=== PATIENT | female | born 1975 | race Caucasian/White ===

== ENCOUNTER → 2019-07-13 10:41 | Outpatient (CLI) | payer BC, SELFPAY ==
--- NOTE | 2019-07-13 10:47 | US_ITS ---
STUDY: ABDOMINAL ULTRASOUND - RIGHT UPPER QUADRANT REASON FOR VISIT: Female, 44 years old. R quadrant pain TECHNIQUE: Ultrasound evaluation of the right upper quadrant was performed with real-time and static smith-scale imaging. TECHNICAL QUALITY: Adequate. COMPARISON: None. FINDINGS: Liver: The liver measures 14 cm. There is increased echogenicity of the liver. The bile ducts are within normal limits. There is hepatic color flow. The direction of portal flow is hepatopetal. There is no demonstrated mass lesion. Gallbladder: Normal distended gallbladder. The gallbladder wall measures 3 mm. There is no pericholecystic fluid. There are no gallstones. Gallbladder sludge is present. Common Bile Duct (C.B.D.): The common bile duct measures 2 mm. Pancreas: Normal size of the head, body and tail of the pancreas. There is normal echogenicity of the pancreas. There is no demonstrated pancreatic mass or cyst. Right Kidney: Normal size of the right kidney. The right kidney measures 10 cm. Normal renal cortex. There is no demonstrated renal mass or cyst. There is no right hydronephrosis. US/Gallbladder IMPRESSION: Fatty liver. No hepatic lesions identified. Gallbladder sludge. Electronically Signed: Edwin Sterling, at 18:09 EDT Tel , Service support ,
== END ==
PROVIDERS: Family Provider Family Medicine; PCP Family Medicine; Referring Provider Family Medicine; Visit Provider Family Medicine
DX: R10.11 Right upper quadrant pain (principal)
CPT/HCPCS: 76705

== ENCOUNTER → 2019-08-05 10:08 | Outpatient (CLI) | payer BC, SELFPAY ==
[2019-08-05 09:18] VITALS: BMI 34.7
[2019-08-05 10:30] LABS: Absolute Lymphocyte Count 2.24 X10^3/uL (0.83-4.51); Absolute Neutrophil Count 3.9 X10^3/uL (2.0-7.7); Basophil# 0.05 X10^3/uL; Basophil% 0.7 % (0-1); Eosinophil# 0.24 X10^3/uL; Eosinophils% 3.3 % (0-5); Hematocrit 41.7 % (37-47); Hemoglobin 13.7 g/dL (12.0-15.0); Lymphocyte # 2.24 X10^3/ul (4.0); Lymphocyte % 30.7 % (19-41); Mean Corp Hgb Conc 32.9 g/dL (32-36); Mean Corpuscular Volume 91.4 fL (81-99); Mean Platelet Vol. 9.1 fl (6.2-12.0); Monocyte# 0.81 X10^3/uL; Monocyte% 11.1 % (0-10); NRBC Flagged by Analyzer 0 % (0-5); Neutrophil # 3.93 X10^3/uL (2.7-7.7); Neutrophil % 53.8 % (47-70); Platelet Count 281 K/mm3 (150-450); RBC Distribution Width CV 12.6 % (11.6-14.6); Red Blood Count 4.56 M/mm3 (4.2-5.4); White Blood Count 7.3 K/mm3 (4.4-11.0)
[2019-08-05 11:00] LABS: Erythrocyte Sedimentation Rate 3 mm/hr (0-20)
[2019-08-05 11:05] LABS: ALB/GLOB Ratio 1.1 RATIO (0.9-2.4); AST(SGOT) 20 U/L (15-37); Alanine Aminotransfer ALT/SGPT 42 U/L (13-56); Albumin, Serum 3.9 g/dL (3.2-5.0); Alkaline Phosphatase 57 U/L (45-117); Anion Gap 6 (5-15); BUN 11 mg/dL (7-18); BUN/Creat Ratio 11.2 RATIO (10-20); Calcium,Total 9.1 mg/dL (8.5-10.1); Chloride 105 mmol/L (98-107); Creatinine, Serum 0.98 mg/dL (0.55-1.02); EST Glomerular Filtration Rate 65 mL/min (>60); Est Glom Filt Rate - Afr Amer 79 mL/min (>60); Globulin 3.4 g/dL (2.2-4.2); Glucose 91 mg/dL (74-106); Lipase 178 U/L (73-393); Potassium 3.9 mmol/L (3.5-5.1); Protein, Total 7.3 g/dL (6.4-8.2); Sodium Level 139 mmol/L (136-145)
== END ==
PROVIDERS: Family Provider Family Medicine; PCP Family Medicine; Referring Provider Surgery; Visit Provider Surgery
DX: R10.9 Unspecified abdominal pain (principal)
CPT/HCPCS: 80053; 83690; 85025; 85652

== ENCOUNTER → 2019-08-09 12:01 | Outpatient (CLI) | payer BC, SELFPAY ==
[2019-08-05 09:18] VITALS: BMI 34.7
--- NOTE | 2019-08-09 12:02 | NM_ITS ---
CLINICAL: 44-year-old female with reported history of postprandial abdominal pain and nausea. RADIONUCLIDE HEPATOBILIARY SCINTIGRAPHY COMPARISON: Abdominal ultrasound report 07/13/2019 FINDINGS: Following the intravenous administration of 5.5 mCi of 99m Tc Mebrofenin, hepatobiliary images reveal: 1. Relatively prompt and homogeneous radiopharmaceutical concentration is noted by a normal sized liver. No parenchymal defects are identified. 2. Gallbladder activity is identified at 15 minutes post radiopharmaceutical administration. 3. Small intestinal tract is not visualized during 60 minutes of pre-CCK sequential imaging. Small bowel activity is identified following the administration of cholecystokinin. 4. Washout of the radiopharmaceutical by the hepatic parenchyma appears qualitatively normal. Cholecystokinin (0.02 ug/kg) was administered intravenously over a 30-minute period. The post CCK gallbladder ejection fraction calculated at 19 minutes following Cholecystokinin administration was noted to be 39.0 % (normal greater than 35%). During 30 minutes of post CCK imaging, there is no scintigraphic evidence of reflux of the radiotracer into the common hepatic duct or refilling of the gallbladder. MD/Hepatobilliary Img w/Pharm Int IMPRESSION: 1. NORMAL 99m Tc Mebrofenin hepatobiliary imaging examination with Cholecystokinin. A. A gallbladder ejection fraction calculated to be greater than 35% following the administration of Cholecystokinin makes the probability of functional hepatobiliary disease (gallbladder and/or sphincter of Oddi dyskinesia) and/or organic hepatobiliary disease (chronic acalculous cholecystitis and/or cystic duct syndrome) to be low. (Yuri Munoz et al, Journal of Nuclear Medicine 32:1695, 1990). Electronically Signed: Farhad Diehl DO at 23:59 EST Tel , Service support ,
== END ==
PROVIDERS: Family Provider Family Medicine; PCP Family Medicine; Referring Provider Surgery; Visit Provider Surgery
DX: R10.11 Right upper quadrant pain (principal)
CPT/HCPCS: 78227; A9537; J2805

== ENCOUNTER 2019-08-30 08:41 | Day surgery (SDC) | payer BC, SELFPAY ==
[2019-08-05 09:18] VITALS: BMI 34.7
--- NOTE | 2019-08-05 10:34 | HP_ITS ---
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 Is patient in pain?: No Allergies No Known Allergies Allergy (Verified 08/05/19 09:19) Medications atorvastatin 40 mg tablet 40 mg PO DAILY PRN 08/05/19 [History Confirmed 08/05/19] bupropion HCl XL 300 mg 24 hr tablet, extended release 300 mg PO QAM 08/05/19 [History Confirmed 08/05/19] esomeprazole magnesium 40 mg capsule,delayed release 40 mg PO DAILY 08/05/19 [History Confirmed 08/05/19] esterified estrogens-methyltestosterone 0.625 mg-1.25 mg tablet 1 tab PO DAILY 08/05/19 [History Confirmed 08/05/19] estradiol 0.5 mg/0.5 gram (0.1 %) transdermal gel packet 1 packet TRANSDERMAL DAILY 08/05/19 [History Confirmed 08/05/19] levothyroxine 112 mcg capsule 112 mcg PO DAILY 08/05/19 [History] metoprolol succinate ER 50 mg tablet,extended release 24 hr 50 mg PO DAILY 08/05/19 [History Confirmed 08/05/19] Is last menstrual period known: No Post menopausal: No Patient : No [facility] Medical History (Updated 08/05/19 @ 10:31 by Al Bolton MD) Abnormal gallbladder ultrasound (Acute) Right upper quadrant pain (Acute) Heartburn (Acute) Anxiety and depression (Acute) GERD (gastroesophageal reflux disease) (Acute) History of thyroid cancer (Acute) Hypothyroidism (Acute) HTN (hypertension) (Chronic) Surgical History (Updated 08/05/19 @ 09:15 by Soco Dooley) History of colonoscopy (Acute ~2008) History of esophagogastroduodenoscopy (EGD) (Acute ~2008) History of hernia repair (Acute ~2010) History of total hysterectomy (Acute) History of total thyroidectomy (Acute) history of lacrimal duct surgery (Acute) Family History (Updated 08/05/19 @ 09:17 by Soco Dooley) Mother Diabetes Heart disease Father Diabetes Heart disease Hypertension Grandfather CVA (cerebral vascular accident) Social History (Updated 08/05/19 @ 10:34 by Al Bolton MD) Smoking Status: Never smoker alcohol intake: current HPI HPI HPI: VIDAL MORIN, is a 44 F who presents to the office today for HPI HPI Surgical H&P: Yes HPI: VIDAL MORIN is a 44 F who presents to the office today for surgical consultation regarding heartburn and right upper quadrant pain and an abnormal gallbladder ultrasound. The patient is referred by Dr. Shabazz and a written copy of my surgical consult recommendations will return to him. Pleasant 44-year-old female. 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 Mid- summer she states that she had escalation of heartburn symptoms. She tried [id number] antacids like Tums and generic Prilosec. She found some relief but incomplete relief. Feet she found that she had to increase the dosages. April she had onset of vomiting and also onset of right upper quadrant pain with radiation to her back. She was seen by Dr. Shabazz who initiated her on Nexium. The patient states that she is still having reflux symptoms. She complains of a water brash-like sensation retrosternally. But in addition she is complaining of tenderness in the right upper quadrant. She complains of bloating and nausea loose stools. She complains of fatty food intolerance. She does not recall recently having any blood work obtained. She states that approximately 10 years ago she had both an upper and lower endoscopy. At the [facility] on July 13 the patient had a right upper quadrant gallbladder ultrasound. Normal distended gallbladder. Wall measures 3 mm. No pericholecystic fluid. No gallstones. Gallbladder sludge is present. Common bile duct measures 2 mm. [facility] Imaging Services [address] [address] Gallbladder MR#: [id number]:[id number] Name: VIDAL MORIN [facility] #:[id number] : 1975 44 From: Edwin Sterling MD PCP:Jase Shabazz MD Status:REG CLI Study:Gallbladder Date of Exam:07/13/19 Exam#[id number] Ordering Dr: Jase Shabazz MD STUDY: ABDOMINAL ULTRASOUND - RIGHT UPPER QUADRANT REASON FOR VISIT: Female, 44 years old. R quadrant pain TECHNIQUE: Ultrasound evaluation of the right upper quadrant was performed with real-time and static smith-scale imaging. TECHNICAL QUALITY: Adequate. COMPARISON: None. FINDINGS: Liver: The liver measures 14 cm. There is increased echogenicity of the liver. The bile ducts are within normal limits. There is hepatic color flow. The direction of portal flow is hepatopetal. There is no demonstrated mass lesion. Gallbladder: Normal distended gallbladder. The gallbladder wall measures 3 mm. There is no pericholecystic fluid. There are no gallstones. Gallbladder sludge is present. Common Bile Duct (C.B.D.): The common bile duct measures 2 mm. Pancreas: Normal size of the head, body and tail of the pancreas. There is normal echogenicity of the pancreas. There is no demonstrated pancreatic mass or cyst. Right Kidney: Normal size of the right kidney. The right kidney measures 10 cm. Normal renal cortex. There is no demonstrated renal mass or cyst. There is no right hydronephrosis. US/Gallbladder IMPRESSION: Fatty liver. No hepatic lesions identified. Gallbladder sludge. Electronically Signed: Edwin Sterling, at 18:09 EDT Tel , Service support , ROS General General: Yes weight change and fatigue; no appetite, colon cancer, breast cancer or weakness HEENT HEENT: No difficulty swallowing, eye injury, eye surgery, swollen glands or hoarseness Endo Endocrine: Yes thyroid disease and thyroid cancer; no diabetes mellitus, Hair loss, heat intolerance or cold intolerance Cardio Cardiovascular: Yes high blood pressure; no murmur, pacemaker, heart disease, atrial fibrillation, heart attack, heart stent, palpitations, shortness of breat with exertion or chest pain Psych Psychiatric: Yes depression and anxiety; no hearing voices Resp Respiratory: No shortness of breath, No sleep apnea, No cough, No COPD, No asthma, No emphysema, No wheezing Gastro Gastrointestinal: Yes abdominal pain, Yes nausea or vomiting, No diarrhea, No constipation, No blood in stool, Yes acid reflux, No hemorrhoids, No ulcers, Yes gallbladder problem, No black,tarry stools Tai Hematologic: No blood thinners, No blood disorders, No bleeding, No anemia, No blood clots Neuro Neurologic: No weakness Exam Const General: cooperative Nutritional Appearance: obese Orientation: alert, awake HENNC Head: normal to inspection Other: Carotids 3+. No bruits Chest Chest palpation & inspection: normal inspection of the chest Resp Effort & Inspection: normal respiratory effort Auscultation: clear to auscultation bilaterally Cardio Rate: regular rate Rhythm: regular rhythm Heart Sounds: no murmurs Other: Femoral pulses 3+ GI Palpation: soft Other: Very slight defect at the umbilicus. No hepatosplenomegaly. Mild tenderness to deep palpation right upper quadrant with no mass. Normal bowel sounds. Not pulsatile. Normal bowel sounds. Skin General: no rashes or lesions noted Neuro Cognition: normal cognition Extrem General: no calf tenderness bilaterally Other: No lower extremity swelling Psych Affect: normal affect Assessment & Plan Problems 1. Heartburn R12 2. Right upper quadrant pain R10.11 3. Abnormal gallbladder ultrasound R93.2 Plan Pleasant 44-year-old female with a variety of symptoms. She certainly has symptoms that seem to be consistent with heartburn and reflux disease but she does not seemingly demonstrate improvement with appropriate proton pump inhibitors. Not sure whether this would represent eosinophilic esophagitis or bile reflux esophagitis or standard acid reflux esophagitis. I recommend a esophagogastroduodenoscopy with biopsies inspecting for H pylori and possible eosinophilic esophagitis and reflux changes. The patient has sludge on her gallbladder ultrasound and is tender in the right upper quadrant. I recommend that we obtain appropriate laboratory evaluation as well as lipase. I recommend that we obtain a hepatobiliary scan. Pending the results of the endoscopy laboratory and imaging study I then will propose additional recommendations. Patient has had an opportunity to ask and have questions answered. She is comfortable with this means of progressing. I very much appreciate the kind opportunity of assisting with her surgical care CC: Dr. Mele Bolton, M.D., F.A.C.S. Orders Orders: EGD Today K21.9, R10.11 Hepatobilliary Img w/Pharm Int Today R10.11 Comprehensive Metabolic Profil Today R10.9 Erythrocyte Sed Rate Today R10.9 Lipase Today R10.9 CBC W/Diff, Automated Today R10.9 Coding Level of Care Code 41197 Diagnoses Heartburn R12 Right upper quadrant pain R10.11 Abnormal gallbladder ultrasound R93.2 08/05/19 1034 <Electronically signed by Al martínez MD> Date _ Al Bolton MD Hepatobiliary scan demonstrated an ejection fraction of 39% felt to be normal Laboratory for liver function test and lipase normal No changes in presentation at this time Al Bolton M.D., F.A.C.S.
[2019-08-30] VITALS (8 sets, daily range): BP systolic 121–143; BP diastolic 78–105; PULSE 71–85; RESP 16; TEMP 36.4–36.8; O2SAT 94–100; BMI 33.7
[2019-08-30] MEDS: Lactated Ringers 1,000 ML 100 ML IV (09:30)
--- NOTE | 2019-08-30 10:15 | EGD_PTH ---
PATIENT: VIDAL MORIN LOC: [facility] U#:[id number] AGE/SX: 44/F ROOM: RE08/30/[address]: Dr. Al Bolton MD : 1975 BED: DIS: 08/30/2019 SPEC #: [id number] RECD: 08/30/19 12:25 STATUS: SILVIA DIDIER #: [id number] MARGARITA: 08/30/19 10:[address]: Al Bolton DEPT: SURGICAL PATHOLOGY RECD BY: Francesco Bettencourt ENTERED: 08/30/19 13:07 SP TYPE: EGD BIOPSY OTHR DR: Dr. Jase Shabazz MD Tissues: A - Duodenum, NOS B - Gastric mucous membrane C - Stomach, NOS D - Esophageal mucous membrane E - Esophageal mucous membrane Procedures: Special Stain Group II Surgery Specimen Level IV Alcian Blue/PAS (control) HEADER OPERATION: EGD (MOD) PRE-OP DIAGNOSIS: Heartburn, right upper quadrant pain, abnormal gallbladder ultrasound TISSUE SUBMITTED: A - Duodenum biopsy, B - Antrum biopsy for H. pylori and path, C - Fundus polyp biopsy, D - Distal esophagus biopsy, E - Mid esophageal biopsy MICROSCOPIC DIAGNOSIS A. Duodenum, biopsy: No pathologic change. B. Gastric antrum, biopsy: Mild chronic gastritis. Intestinal metaplasia. No evidence of dysplasia. See comment. C. Gastric fundus, biopsy: Fragments of benign gastric mucosa. D. Distal esophagus, biopsy: Gastroesophageal junction mucosa with chronic inflammation. No evidence of intestinal metaplasia. Focal changes of reflux. E. Mid esophagus, biopsy: Focal changes suggestive of eosinophilic esophagitis. AM:dao 08/31/19 COMMENT B. The results of immunohistochemistry for Helicobacter pylori will be reported separately ([id number]). Alcian blue/PAS stain with matched control supports the above diagnosis. MICROSCOPIC DESCRIPTION Slides are reviewed. GROSS DESCRIPTION A - Received in fixative is one container labeled with the patient's name and designated duodenum biopsy. The specimen consists of multiple irregular fragments of light agosto soft tissue that in aggregate measure 0.5 x 0.4 x 0.1 cm. The specimen is totally submitted in one cassette. B - Received in fixative is one container labeled with the patient's name and designated antrum biopsy. The specimen consists of one irregular fragment of light agosto soft tissue that measures 0.6 x 0.3 x 0.1 cm. The specimen is totally submitted in one cassette. C - Received in fixative is one container labeled with the patient's name and designated fundus polyp biopsy. The specimen consists of one irregular fragment of light agosto soft tissue that measures 0.6 x 0.2 x 0.1 cm. The specimen is totally submitted in one cassette. D - Received in fixative is one container labeled with the patient's name and designated distal esophagus biopsy. The specimen consists of multiple irregular fragments of light agosto soft tissue that in aggregate measure 1 x 0.6 x 0.1 cm. The specimen is totally submitted in one cassette. E - Received in fixative is one container labeled with the patient's name and designated mid esophageal biopsy. The specimen consists of one irregular fragment of light agosto soft tissue that measures 0.3 x 0.2 x 0.1 cm. The specimen is totally submitted in one cassette. / SJ:rg 08/30/19 TC:3 CPT: 25196 x5, 69266
--- NOTE | 2019-08-30 10:15 | IMM_PTH ---
PATIENT: VIDAL MORIN LOC: [facility] U#:[id number] AGE/SX: 44/F ROOM: RE08/30/[address]: Dr. Al Bolton MD : 1975 BED: DIS: 08/30/2019 SPEC #: [id number] RECD: 08/30/19 13:11 STATUS: SILVIA REDavid #: [id number] MARGARITA: 08/30/19 10:[address]: Al Bolton DEPT: IMMUNOHISTOCHEMISTRY RECD BY: Erendira Betts ENTERED: 08/30/19 13:12 SP TYPE: IMMUNO OTHR DR: Dr. Jase Shabazz MD Tissues: B - Stomach, NOS Procedures: H Pylori (initial) P53 (add) PHYSICIAN & INSTITUTION [place] [id number] SPECIMEN INFORMATION: Tissue Source: B - Antrum biopsy Clinical Info: Heartburn, right upper quadrant pain, abnormal gallbladder ultrasound Specimen Number: [id number] CPT code: 12428, 89372 METHODOLOGY: Deparaffinized sections of prefer/formalin-fixed tissue or PAP/DQ stained slides are incubated with monoclonal/polyclonal antibodies/oligonucleotide probes. Localization is made via biotin free immunoperoxidase method. Appropriate controls are performed and reacted as expected. Results on target cell population are indicated in the following table: RESULTS: ANTIBODY / CLONE RESULT Block B H Pylori (polyclonal) negative P53 (DO-7) negative These tests were developed and their performance characteristics determined by [facility]. They may not have been cleared or approved by the U.S. Food and Drug Administration. The FDA has determined that such clearance or approval is not necessary. The above immunohistochemical/dualISH markers are ordered and reviewed by the Pathologist. INTERPRETATION: B. Antrum biopsy: Negative for Helicobacter pylori organisms. No evidence of dysplasia. AM:dao 09/01/19
--- NOTE | 2019-08-30 11:29 | OP.EGD_ITS ---
Patient Name: America Oliver Procedure Date: 08/30/2019 11:05 AM Date of : 1975 Age: 44 Procedure: Upper GI endoscopy Indications: Abdominal pain in the right upper quadrant Providers: Al Bolton MD Referring MD: Jase Shabazz Medicines: Midazolam 3 mg IV, Meperidine 100 mg IV Complications: No immediate complications. Procedure: Pre-Anesthesia Assessment: - Prior to the procedure, a History and Physical was performed, and patient medications and allergies were reviewed. The patient's tolerance of previous anesthesia was also reviewed. The risks and benefits of the procedure and the sedation options and risks were discussed with the patient. All questions were answered, and informed consent was obtained. Prior Anticoagulants: The patient has taken no previous anticoagulant or antiplatelet agents. ASA Grade Assessment: II - A patient with mild systemic disease. After reviewing the risks and benefits, the patient was deemed in satisfactory condition to undergo the procedure. After obtaining informed consent, the endoscope was passed under direct vision. Throughout the procedure, the patient's blood pressure, pulse, and oxygen saturations were monitored continuously. The gastroscope was introduced through the mouth, and advanced to the second part of duodenum. The upper GI endoscopy was accomplished without difficulty. The patient tolerated the procedure well. Moderate Sedation: Moderate (conscious) sedation was personally administered by the endoscopist. The following parameters were monitored: oxygen saturation, heart rate, blood pressure, and response to care. Total physician intraservice time was 15 minutes. Scope In: 11:11:10 AM Scope Out: 11:21:36 AM Total Procedure Duration Time 0 hours 10 minutes 26 seconds Findings: LA Grade A (one or more mucosal breaks less than 5 mm, not extending between tops of 2 mucosal folds) esophagitis with no bleeding was found 37 cm from the incisors. Biopsies were taken with a cold forceps for histology. A small hiatal hernia was present. A few sessile polyps with no bleeding and no stigmata of recent bleeding were found in the gastric fundus. The polyp was removed with a cold biopsy forceps. Resection and retrieval were complete. Biopsies were taken with a cold forceps in the gastric antrum for histology. The examined duodenum was normal. Biopsies were taken with a cold forceps for histology. Impression: - LA Grade A reflux esophagitis. Rule out Elkins's esophagus. Biopsied. Mid esophageal biopsies obtained - Small hiatal hernia. - A few gastric polyps. Resected and retrieved x 1 - Biopsies were taken with a cold forceps for histology in the gastric antrum. Biopsies of the duodenum obtained. Recommendation: - Discharge patient to home. - Resume previous diet. - Continue present medications. - Return to my office in 1 week. Discuss right upper quadrant pain and HIDA EF 39% and sludge on GB U/S Procedure Code(s): --- Professional --- 74983, Esophagogastroduodenoscopy, flexible, transoral; with biopsy, single or multiple 49926, 59, Moderate sedation services provided by the same physician or other qualified health intensive care nurse performing the diagnostic or therapeutic service that the sedation supports, requiring the presence of an independent trained observer to assist in the monitoring of the patient's level of consciousness and physiological status; initial 15 minutes of intraservice time, patient age 5 years or older Diagnosis Code(s): --- Professional --- K21.0, Gastro-esophageal reflux disease with esophagitis K44.9, Diaphragmatic hernia without obstruction or gangrene K31.7, Polyp of stomach and duodenum R10.11, Right upper quadrant pain CPT copyright 2017 [employer]. All rights reserved. The codes documented in this report are preliminary and upon new accounts banking representative review may be revised to meet current compliance requirements. Al Bolton MD 08/30/2019 11:28:43 AM This report has been signed electronically. Number of Addenda: 0 Note Initiated On: 08/30/2019 11:05 AM
[2019-08-30] MEDS: Ondansetron ODT 4 MG Tablet PO (13:11)
== END 2019-08-30 13:35 | disposition home or self-care (01) ==
LOC: EN 08:42 → AC 08:43
PROVIDERS: Family Provider Family Medicine; PCP Family Medicine; Referring Provider Family Medicine; Visit Provider Surgery
PROC: (CPT 43239; principal; 2019-08-30 10:10)
DX: K29.50 Unspecified chronic gastritis without bleeding (principal); K21.0 Gastro-esophageal reflux disease with esophagitis; K44.9 Diaphragmatic hernia without obstruction or gangrene; K31.7 Polyp of stomach and duodenum; F32.9 Major depressive disorder, single episode, unspecified; F41.9 Anxiety disorder, unspecified; E03.9 Hypothyroidism, unspecified; I10 Essential (primary) hypertension; K76.0 Fatty (change of) liver, not elsewhere classified; Z85.850 Personal history of malignant neoplasm of thyroid; Z79.899 Other long term (current) drug therapy
CPT/HCPCS: 43239; 88305; 88313; 88341; 88342; 99152; 99153; J7120